=== PATIENT | male | born 1995 | race Caucasian/White ===

== ENCOUNTER 2019-12-15 01:40 | Emergency (ER) | payer SELFPAY ==
[~2019-12-15] VITALS: Ht 185.4 cm; Wt 81.6 kg
[2019-12-15 02:00] VITALS: BP_SYST 103; BP_SYST 56; BP_DIAS 59
--- NOTE | 2019-12-15 02:00 | NUR ---
ED Nurse Note: Patient brought into ED by friends for c/o syncopal episode. Patient was in [place] with friends while drinking alcohol and smoking marijuana. He passed out and hit his head. Patient states he lost consciousness for a few seconds. Patient reports head pain and R arm/shoulder pain. He has abrasions to his face and hands. He is aaox4, breathing is normal and unlabored.
--- NOTE | 2019-12-15 02:13 | Emergency Room Report ---
History of Present Illness General Chief Complaint: Syncope Source: Patient Present Illness HPI Patient presents after syncopal episode. He drank. Had THC. He has passed out before when he has mixed alcohol and THC. He hit his chin and also his right side as he went to the ground on a car that was parked. His friend said that they thought that it looked like a seizure. He immediately woke up without a p ostictal period without biting his tongue or incontinence. He is complaining about 9/10 pain on the right-hand side -shoulder, clavicle, neck and face. He has never had seizures in the past. He denies headache. There is no numbness. He rates the pain 7/10. It is aching when he tries to move his arm and neck. No radiation. He has some scrapes on his chin, right nose. There is no active bleeding. No epistaxis. Patient is right-handed. Tetanus is up-to-date. He denies exposure to COVID-19 positive contacts. No fevers, chills, sore throat, chest pain, palpitations, nausea, vomiting, diarrhea, dysuria, abdominal pain, shortness of breath, depression, anxiety. 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,, plays guitar right-handed Reviewed Nursing Documentation: PMH: Agreed; PSxH: Agreed Nursing Documentation-PM Past Medical History: No Stated History Review of Systems All Other Systems: negative except mentioned in HPI Physical Exam Vital Signs Date Time Temp Pulse Resp B/P (MAP) Pulse Ox O2 Delivery O2 Flow Rate FiO2 12/15/19 01:51 98.4 52 16 97/59 (72) 98 Room Air Sp02 EP Interpretation: reviewed, normal General Appearance: well appearing, no apparent distress, GCS 15 Head: normocephalic Eyes: bilateral eye PERRL, bilateral eye EOMI, bilateral eye Scleral Injection ENT: moist mucus membranes - No lingual macerations, other - Tenderness chin and right side of nose without swelling (scar chin from prior trauma) Neck: full range of motion, supple, tender - Midline Respiratory: chest non-tender, lungs clear, normal breath sounds, other - Right-sided chest wall tenderness without crepitance Cardiovascular #1: regular rate, rhythm, no edema Cardiovascular #2: 2+ radial (R) Gastrointestinal: normal bowel sounds, non tender Genitourinary: no CVA tenderness Musculoskeletal: moves extm spontaneously, tender - Right clavicle, right shoulder with decreased range of motion, other - Right elbow, wrist and hand without pain Neurologic: alert, motor strength/tone normal, 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 The fact witnesses saw seizure-like activity is disconcerting however the fact that he woke up immediately and had no postictal phase suggests non-epileptiform activity. Patient needs evaluation with EKG, chest x-ray and labs. Due to the trauma clavicle, shoulder x-rays are indicated. In addition with the head trauma CT head, maxillofacial and C-spine will be performed. Patient treated for pain given IV hydration. Tetanus is up-to-date. Bacitracin is applied. Normal sinus rhythm with sinus arrhythmia. Chest x-ray negative. Right shoulder and clavicle no fractures. CBC normal. CMP with minimally elevated blood glucose. Blood alcohol 39. Urine tox positive for THC. CTs as listed below. Essentially negative. Patient improved with pain medication. Still complaining about some pain. Patient is taking a taxi and therefore we are limited in what medications can be given at this time. Patient ambulatory and moving his right arm without difficulty. A sling is applied. Position is excellent. Distal neurovascular exam is normal and there is some improvement. Discussed results with patient. Discussed avoidance of mixing alcohol and THC. The episode seems easily preventable and therefore notification of DMV is not undertaken. Discussed the need for outpatient reevaluation and follow-up. Patient improved. Patient stable for outpatient observation and treatment. Laboratory Tests Test 12/15/19 02:00 12/15/19 05:30 White Blood Count 9.8 K/UL (4.8-10.8) Red Blood Count 5.10 M/UL (4.70-6.10) Hemoglobin 15.8 G/DL (14.2-18.0) Hematocrit 44.1 % (42.0-52.0) Mean Corpuscular Volume 86 FL (80-99) Mean Corpuscular Hemoglobin 31.0 PG (27.0-31.0) Mean Corpuscular Hemoglobin Concent 35.8 G/DL (32.0-36.0) Red Cell Distribution Width 10.8 % (11.6-14.8) L Platelet Count 215 K/UL (150-450) Mean Platelet Volume 7.0 FL (6.5-10.1) Neutrophils (%) (Auto) 68.8 % (45.0-75.0) Lymphocytes (%) (Auto) 22.0 % (20.0-45.0) Monocytes (%) (Auto) 6.7 % (1.0-10.0) Eosinophils (%) (Auto) 1.3 % (0.0-3.0) Basophils (%) (Auto) 1.2 % (0.0-2.0) Prothrombin Time 10.7 SEC (9.30-11.50) Prothrombin Time INR 1.0 (0.9-1.1) Activated Partial Thromboplast Time 22 SEC (23-33) L Sodium Level 139 MMOL/L (136-145) Potassium Level 3.9 MMOL/L (3.5-5.1) Chloride Level 105 MMOL/L (98-107) Carbon Dioxide Level 25 MMOL/L (21-32) Anion Gap 9 mmol/L (5-15) Blood Urea Nitrogen 10 mg/dL (7-18) Creatinine 1.2 MG/DL (0.55-1.30) Estimated Glomerular Filtration Rate > 60 mL/min (>60) Glucose Level 122 MG/DL (74-106) H Calcium Level 8.4 MG/DL (8.5-10.1) L Total Bilirubin 0.6 MG/DL (0.2-1.0) Aspartate Amino Transferase (AST) 12 U/L (15-37) L Alanine Aminotransferase (ALT) 18 U/L (12-78) Alkaline Phosphatase 40 U/L (46-116) L Total Protein 6.4 G/DL (6.4-8.2) Albumin 4.2 G/DL (3.4-5.0) Globulin 2.2 g/dL Albumin/Globulin Ratio 1.9 (1.0-2.7) Serum Alcohol 39 mg/dL Urine Color Pale yellow Urine Appearance Clear Urine pH 5 (4.5-8.0) Urine Specific [place] 1.020 (1.005-1.035) Urine Protein Negative (NEGATIVE) Urine Glucose (UA) Negative (NEGATIVE) Urine Ketones 2+ (NEGATIVE) H Urine Blood Negative (NEGATIVE) Urine Nitrite Negative (NEGATIVE) Urine Bilirubin Negative (NEGATIVE) Urine Urobilinogen Normal MG/DL (0.0-1.0) Urine Leukocyte Esterase 1+ (NEGATIVE) H Urine RBC 0 /HPF (0 - 0) Urine WBC 0-2 /HPF (0 - 0) Urine Squamous Epithelial Cells Occasional /LPF Urine Bacteria Occasional /HPF (NONE) Urine Mucus Few /LPF (NONE/OCC) H Urine Opiates Screen Positive (NEGATIVE) H Urine Barbiturates Screen Negative (NEGATIVE) Phencyclidine (PCP) Screen Negative (NEGATIVE) Urine Amphetamines Screen Negative (NEGATIVE) Urine Benzodiazepines Screen Negative (NEGATIVE) Urine Cocaine Screen Negative (NEGATIVE) Urine Marijuana (THC) Screen Positive (NEGATIVE) H EKG Diagnostic Results Rate: normal Rhythm: NSR ST Segments: no acute changes Rhythm Strip Diag. Results EP Interpretation: yes Rhythm: NSR, no PVC's, no ectopy Chest X-Ray Diagnostic Results Chest X-Ray Diagnostic Results : Chest X-Ray Ordered: Yes # of Views/Limited/Complete: 1 View Indication: Chest Pain EP Interpretation: Yes Interpretation: no consolidation, no effusion, no pneumothorax Impression: No acute disease Electronically Signed by: Electronically signed by Kelton Hubbard MD Other X-Ray Diagnostic Results Other X-Ray Diagnostic Results #1: X-Ray ordered: Right shoulder # of Views/Limited Vs Complete: 3 View Indication: Pain EP Interpretation: Yes Interpretation: no dislocation, no soft tissue swelling, no fractures Impression: No acute disease Electronically Signed by: Electronically signed by Kelton Hubbard MD Other X-Ray Diagnostic Results #2: X-Ray ordered: Right clavicle # of Views/Limited Vs Complete: 2 View Indication: Pain EP Interpretation: Yes Interpretation: no dislocation, no soft tissue swelling, no fractures Impression: No acute disease Electronically Signed by: Electronically signed by Kelton Hubbard MD CT/MRI/US Diagnostic Results CT/MRI/US Diagnostic Results #1: Imaging Test Ordered: Head Impression No intracranial pathology CT/MRI/US Diagnostic Results #2: Imaging Test Ordered: Maxillofacial Impression No obvious fractures but soft tissue defect on lateral nose CT/MRI/US Diagnostic Results #3: Imaging Test Ordered: C-spine Last Vital Signs Date Time Temp Pulse Resp B/P (MAP) Pulse Ox O2 Delivery O2 Flow Rate FiO2 12/15/19 06:15 98.1 62 18 110/65 100 Room Air Status: improved Disposition: HOME, SELF-CARE Condition: Improved Scripts Bacitracin (Bacitracin) 28.4 Gm Oint...g. 1 APPLIC TOPIC BID, #10 GM Prov: Kelton Hubbard MD 12/15/19 Ibuprofen* (MOTRIN*) 600 Mg Tablet 600 MG ORAL Q6H PRN for FOR PAIN, #16 TAB 0 Refills Prov: Kelton Hubbard MD 12/15/19 Hydrocodone Bit/Acetaminophen 5-325* (NORCO 5-325 TABLET*) 1 Each Tablet 1 TAB ORAL Q6H PRN for FOR PAIN, #8 TAB 0 Refills Prov: Kelton Hubbard MD 12/15/19 Kelton Hubbard MD Dec 15, 2019 02:13
[2019-12-15] MEDS ORDERED: Morphine Sulfate 4mg/ml Inj (IV USE ONLY) IVP ONE (02:15)
[2019-12-15] MEDS ORDERED: Ketorolac 30mg Inj IV ONE (02:15)
[2019-12-15] MEDS ORDERED: Bacitracin Oint UD TOPIC ONE (02:15)
[2019-12-15 02:22] LABS: BASOPHILS % (AUTO) 1.2 % (0.0-2.0); EOSINOPHILS % (AUTO) 1.3 % (0.0-3.0); HEMATOCRIT 44.1 % (42.0-52.0); HEMOGLOBIN 15.8 G/DL (14.2-18.0); MEAN CORPUSCULAR VOLUME 86 FL (80-99); MONOCYTES % (AUTO) 6.7 % (1.0-10.0); NEUTROPHILS % (AUTO) 68.8 % (45.0-75.0); PLATELET COUNT 215 K/UL (150-450); RED CELL DISTRIBUTION WIDTH 10.8 % (11.6-14.8); WHITE BLOOD COUNT 9.8 K/UL (4.8-10.8)
[2019-12-15 02:28] LABS: ANION GAP 9 mmol/L (5-15); BLOOD UREA NITROGEN 10 mg/dL (7-18); CALCIUM 8.4 MG/DL (8.5-10.1); CARBON DIOXIDE 25 MMOL/L (21-32); CHLORIDE 105 MMOL/L (98-107); CREATININE 1.2 MG/DL (0.55-1.30); POTASSIUM 3.9 MMOL/L (3.5-5.1); SODIUM 139 MMOL/L (136-145)
[2019-12-15 02:33] LABS: ALANINE AMINOTRANSFERASE 18 U/L (12-78); ALBUMIN 4.2 G/DL (3.4-5.0); ALBUMIN/GLOBULIN RATIO 1.9 (1.0-2.7); ALKALINE PHOSPHATASE 40 U/L (46-116); ASPARTATE AMINO TRANSFERASE 12 U/L (15-37); BILIRUBIN,TOTAL 0.6 MG/DL (0.2-1.0)
[2019-12-15 04:30] VITALS: BP 114/63
--- NOTE | 2019-12-15 04:30 | NUR ---
ED Nurse Note: Patient returned from CT in stable condition. Patient is resting in bed, eyes closed. No distress at this time. Will continue to monitor.
--- NOTE | 2019-12-15 05:20 | NUR ---
ED Nurse Note: Patient is awake and alert, able to get out of bed to use restroom with steady gait. NAD noted. ERMD speaking with pt.
--- NOTE | 2019-12-15 05:30 | NUR ---
ED Nurse Note: R arm placed in sling.
[2019-12-15] MEDS ORDERED: BACITRACIN15 GM TOPIC (05:39)
[2019-12-15] MEDS ORDERED: NORCO 5-325 TA1 EAC1 ORAL (05:39)
[2019-12-15] MEDS ORDERED: IBUPROFEN600 M1 ORAL (05:39)
[2019-12-15 05:45] LABS: APPEARANCE,URINE CLEAR; BILIRUBIN, URINE NEGATIVE (NEGATIVE); COLOR,URINE PALE YELLOW; GLUCOSE, URINE (UA) NEGATIVE (NEGATIVE); KETONES,URINE 2+ (NEGATIVE); LEUKOCYTE ESTERASE ,URINE 1+ (NEGATIVE); NITRITE,URINE NEGATIVE (NEGATIVE); PH,URINE 5 (4.5-8.0); PROTEIN,URINE NEGATIVE (NEGATIVE); UROBILINOGEN,URINE NORMAL MG/DL (0.0-1.0)
[2019-12-15 06:15] VITALS: BP 110/65
--- NOTE | 2019-12-15 06:15 | NUR ---
ER DISCHARGE NOTE: Patient is cleared to be discharged per ERMD, pt is aox4, on room air, with stable vital signs. pt was given dc and prescription instructions, pt was able to verbalize understanding, pt id band and iv site removed without complications. pt is able to ambulate with steady gait. pt took all belongings.
--- NOTE | 2019-12-17 06:18 | Diagnostic Imaging Report ---
EXAM: CT Maxillofacial Without Intravenous Contrast CLINICAL HISTORY: TRAUMA TECHNIQUE: Axial computed tomography images of the face without intravenous contrast. CTDI is 15.30 mGy and DLP is 375.10 mGy-cm. One or more of the following dose reduction techniques were used: automated exposure control, adjustment of the mA and/or kV according to patient size, use of iterative reconstruction technique. COMPARISON: No relevant prior studies available. FINDINGS: The mandible is intact and well located. The maxillary alveolus, hard palate, and pterygoid plates are intact. The paranasal sinuses are well-developed and well-aerated. The mastoid air cells are grossly clear. The nasal bones and maxillary spines are intact. Mild nasal soft tissue swelling with a focus of subcutaneous air (series 5 image 33) within the right nasal soft tissues. The zygomatic arches and zygomatic bones are intact. The orbital rims and simpson are intact. The intraorbital contents are grossly unremarkable. IMPRESSION: The nasal bones and maxillary spines are intact. Mild nasal soft tissue swelling with a focus of subcutaneous air (series 5 image 33) within the right nasal soft tissues. Correlate for small laceration.
--- NOTE | 2019-12-17 06:18 | Diagnostic Imaging Report ---
EXAM: CT Head Without Intravenous Contrast CLINICAL HISTORY: TRAUMA TECHNIQUE: Axial computed tomography images of the head/brain without intravenous contrast. CTDI is 53.40 mGy and DLP is 1072.20 mGy-cm. One or more of the following dose reduction techniques were used: automated exposure control, adjustment of the mA and/or kV according to patient size, use of iterative reconstruction technique. COMPARISON: No relevant prior studies available. FINDINGS: No acute intracranial hemorrhage. No midline shift or mass effect. The territorial huerta-white matter differentiation is maintained throughout. The ventricles and sulci are commensurate with age. The visualized orbits appear grossly unremarkable. The calvarium is intact. The visualized paranasal sinuses and mastoid air cells are grossly clear. IMPRESSION: No acute intracranial hemorrhage, midline shift, or mass effect.
--- NOTE | 2019-12-17 06:18 | Diagnostic Imaging Report ---
EXAM: CT Cervical Spine Without Intravenous Contrast CLINICAL HISTORY: TRAUMA TECHNIQUE: Axial computed tomography images of the cervical spine without intravenous contrast. CTDI is 18.30 mGy and DLP is 630.60 mGy-cm. One or more of the following dose reduction techniques were used: automated exposure control, adjustment of the mA and/or kV according to patient size, use of iterative reconstruction technique. COMPARISON: No relevant prior studies available. FINDINGS: The vertebral body heights are maintained. There is no spondylolisthesis. The craniocervical junction is intact. The atlanto-dens interval is maintained. The dens is intact. The intervertebral disc spaces are preserved. There is no spinal canal or neural foraminal stenosis. There is no prevertebral soft tissue swelling. The unenhanced neck soft tissues are grossly unremarkable. The visualized lung apices are grossly clear. IMPRESSION: No acute fracture or subluxation of the cervical spine.
--- NOTE | 2019-12-17 06:18 | Diagnostic Imaging Report ---
EXAM: XR Right Clavicle Complete, 2 or More Views CLINICAL HISTORY: TRAUMA TECHNIQUE: Frontal and lordotic views of the right clavicle. COMPARISON: No relevant prior studies available. FINDINGS: Bones/joints: Unremarkable. No acute fracture. No dislocation. Soft tissues: Unremarkable. IMPRESSION: Normal right clavicle x-rays.
--- NOTE | 2019-12-17 06:18 | Diagnostic Imaging Report ---
EXAM: XR Chest, 1 View CLINICAL HISTORY: TRAUMA TECHNIQUE: Frontal view of the chest. COMPARISON: No relevant prior studies available. FINDINGS: Lungs: Unremarkable. No consolidation. Pleural space: Unremarkable. No pneumothorax. Heart: Unremarkable. No cardiomegaly. Mediastinum: Unremarkable. Bones/joints: Unremarkable. IMPRESSION: Normal chest x-ray.
--- NOTE | 2019-12-17 06:18 | Diagnostic Imaging Report ---
EXAM: XR Right Shoulder Complete, 2 or More Views CLINICAL HISTORY: TRAUMA TECHNIQUE: Two or more views of the right shoulder. COMPARISON: No relevant prior studies available. FINDINGS: Bones/joints: Unremarkable. No acute fracture. No dislocation. Soft tissues: Unremarkable. IMPRESSION: Normal right shoulder x-rays.
== END 2019-12-15 06:15 | disposition home or self-care (01) ==
LOC: EMR 02:22
DX: R55 Syncope and collapse (principal); S01.81XA Laceration without foreign body of other part of head, initial encounter; T14.8XXA Other injury of unspecified body region, initial encounter; F17.200 Nicotine dependence, unspecified, uncomplicated; M25.511 Pain in right shoulder; M54.2 Cervicalgia; R51.9 Headache, unspecified; F12.90 Cannabis use, unspecified, uncomplicated; I49.9 Cardiac arrhythmia, unspecified
CPT/HCPCS: 36415; 70450; 70486; 71045; 72125; 73000; 73030; 80053; 80307; 81001; 85025; 85610; 85730; 93005; 96374; 96375; 99284; G0480; J1885; J2270; J2405

== ENCOUNTER 2019-12-25 15:41 | Emergency (ER) | payer BC ==
[~2019-12-25] VITALS: Ht 193 cm; Wt 79.4 kg
[~2019-12-25 15:41] MED LIST: BACITRACIN15 GM TOPIC; IBUPROFEN600 M1 ORAL; NORCO 5-325 TA1 EAC1 ORAL
[2019-12-25 15:55] VITALS: BP 108/72
--- NOTE | 2019-12-25 16:46 | Emergency Room Report ---
History of Present Illness General Chief Complaint: Sore Throat Present Illness HPI 24 YO male presents to the ED c/o 10/[address], chills with cold sweats and white pus on the right side of his throat x 2 days. Pt. reports the pus was visible today. Pt. states he has been taking 500mg Tylenol q6 hours without relief. Pt. reports pain with swallowing and decreased appetite due to pain. He denies changes in his voice. Pt. denies cough, neck pain/stiffness, photophobia, nasal congestion rhinorrhea. He reports recent head injury 10 days ago and states he has intermittent BARRERA's. Pt. reports he has not followed up from previous ED visit regarding head injury. He denies dizziness, visual changes, or vomiting. Pt. denies weakness. 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 Patient History Past Medical History: see triage record Past Surgical History: none Pertinent Family History: none Reviewed Nursing Documentation: PMH: Agreed; PSxH: Agreed Nursing Documentation-PMH Hx Seizures: Yes Review of Systems All Other Systems: negative except mentioned in HPI Physical Exam Vital Signs Date Time Temp Pulse Resp B/P (MAP) Pulse Ox O2 Delivery O2 Flow Rate FiO2 12/25/19 15:47 98.2 92 18 108/72 (84) 96 Room Air Sp02 EP Interpretation: reviewed, normal General Appearance: no apparent distress, alert, GCS 15, non-toxic Head: normocephalic, atraumatic Eyes: bilateral eye normal inspection, bilateral eye PERRL ENT: hearing grossly normal, normal voice, uvula midline, moist mucus membranes, tonsillar swelling, pharyngeal erythema, tonsillar exudate - right tonsilar exudate, opaque/ yellowish in consistency Neck: full range of motion Respiratory: lungs clear, normal breath sounds, no wheezing, speaking full sentences Cardiovascular #1: regular rate, rhythm Musculoskeletal: normal range of motion, gait/station normal, non-tender Neurologic: alert, motor strength/tone normal, oriented x3, sensory intact, responsive, speech normal Psychiatric: judgement/insight normal Skin: no rash, normal color Medical Decision Making PA Attestation Dr. Moran Is my supervising Physician whom patient management has been discussed with. Diagnostic Impression: Primary Impression: Exudative tonsillitis ER Course 24 YO male presents to the ED c/o 10/[address], chills with cold sweats and white pus on the right side of his throat x 2 days. Pt. reports the pus was visible today. Pt. states he has been taking 500mg Tylenol q6 hours without relief. Pt. reports pain with swallowing and decreased appetite due to pain. He denies changes in his voice. Pt. denies cough, neck pain/stiffness, photophobia, nasal congestion rhinorrhea. He reports recent head injury 10 days ago and states he has intermittent BARRERA's. Pt. reports he has not followed up from previous ED visit regarding head injury. He denies dizziness, visual changes, or vomiting. Pt. denies weakness. Ddx considered but are not limited to: Pharyngitis, strep, TEACHING ASSOCIATE, Ludwigs angina, URI, mono, viral pharyngitis, tonsillolith, COVID-19 just to name a few. Vital signs: are WNL, pt. is afebrile H&PE are most consistent with: Tonsillitis- presumed strep. STI related Tonsillitis is considered given exudative process, but of lower suspicion at this time. ORDERS: None required at this time as the diagnosis is clinical ED INTERVENTIONS: none required at this time. DISCHARGE: At this time pt. is stable for d/c to home. Will provide printed patient care instructions, and any necessary prescriptions. Care plan and follow up instructions have been discussed with the patient prior to discharge. Last Vital Signs Date Time Temp Pulse Resp B/P (MAP) Pulse Ox O2 Delivery O2 Flow Rate FiO2 12/25/19 15:55 98.2 76 18 108/72 96 Room Air Status: improved Disposition: HOME, SELF-CARE Condition: Stable Scripts Lidocaine HCl 2% Viscous (Lidocaine HCl 2% Viscous) 100 Ml Solution 15 ML ORAL QID, #120 ML Prov: Neris Michelle 12/25/19 Amoxicillin/Potassium Clav 875-125* (AUGMENTIN 875-125 TABLET*) 1 Each Tablet 1 TAB ORAL TWICE A DAY, #20 TAB Prov: Neris Michelle 12/25/19 Referrals: NOT CHOSEN IPA/MD,REFERRING (PCP) Patient Instructions: Tonsillitis Additional Instructions: Take medications as directed. Follow up with a Primary Care Provider in 3-5 days, even if your symptoms have resolved. --Please review list of primary care clinics, if you do not already have a primary care provider Return sooner to ED if new symptoms occur, or current symptoms become worse. - Please note that this Emergency Department Report was dictated using [employer] architect technology software, occasionally this can lead to erroneous entry secondary to interpretation by the dictation equipment. Neris Michelle Dec 25, 2019 16:46
[2019-12-25] MEDS ORDERED: LIDOCAINE VISC100 ML ORAL (16:47)
[2019-12-25] MEDS ORDERED: AUGMENTIN 875-1 EAC1 ORAL (16:47)
[2019-12-25 16:50] VITALS: BP 108/72
== END 2019-12-25 16:50 | disposition home or self-care (01) ==
LOC: EMR 16:00
DX: J03.90 Acute tonsillitis, unspecified (principal); G40.909 Epilepsy, unspecified, not intractable, without status epilepticus
CPT/HCPCS: 99282